=== PATIENT | female | born 1995 | race Caucasian/White ===

== ENCOUNTER → 2018-10-07 | Outpatient (REF) | payer OTHER, SELFPAY | LOC: M LAB REF 13:03 | PROVIDERS: ATTEND Physician Assistant | DX: J02.9 Acute pharyngitis, unspecified (principal) ==

== ENCOUNTER → 2018-10-09 | Outpatient (REF) | payer BC, OTHER | LOC: M LAB REF 19:33 | PROVIDERS: ATTEND Physician Assistant Medical | DX: R10.9 Unspecified abdominal pain (principal) ==

== ENCOUNTER → 2019-05-11 | Outpatient (REF) | payer BC | LOC: M LAB REF 09:56 | PROVIDERS: ATTEND Physician Assistant | DX: J03.90 Acute tonsillitis, unspecified (principal) ==

== ENCOUNTER → 2020-01-21 | Outpatient (CLI) | payer BC | LOC: M LABSMTC 13:00 | PROVIDERS: ATTEND Pediatrics | DX: Z11.59 Encounter for screening for other viral diseases (principal); Z20.828 Contact with and (suspected) exposure to other viral communicable diseases | CPT/HCPCS: C9803; U0002 ==

== ENCOUNTER → 2021-04-14 | Outpatient (REF) | LOC: M EMP 14:33 | PROVIDERS: ATTEND Family Medicine | DX: Z11.52 Encounter for screening for COVID-19 (principal); Z20.822 Contact with and (suspected) exposure to COVID-19 ==

== ENCOUNTER → 2021-04-19 | Outpatient (REF) | LOC: M EMP 08:13 | PROVIDERS: ATTEND Family Medicine | DX: Z20.822 Contact with and (suspected) exposure to COVID-19 (principal) ==

== ENCOUNTER → 2021-04-20 | Outpatient (REF) | LOC: M LABSMTC 10:59 | PROVIDERS: ATTEND Pediatrics | DX: Z20.822 Contact with and (suspected) exposure to COVID-19 (principal) ==

== ENCOUNTER → 2021-10-28 | Outpatient (REF) ==
[2021-10-28 15:05] LABS: RSV AMPLIFICATION NEGATIVE (NEGATIVE)
== END ==
LOC: M EMP 13:41
PROVIDERS: ATTEND Family Medicine
DX: Z20.822 Contact with and (suspected) exposure to COVID-19 (principal)

== ENCOUNTER → 2022-04-16 | Outpatient (REF) | LOC: M LABSMTC 10:50 | PROVIDERS: ATTEND Pediatrics | DX: Z20.822 Contact with and (suspected) exposure to COVID-19 (principal) ==

== ENCOUNTER → 2022-06-04 | Outpatient (REF) | LOC: M LABSMTC 10:50 | PROVIDERS: ATTEND Pediatrics | DX: Z11.52 Encounter for screening for COVID-19 (principal) ==

== ENCOUNTER → 2023-06-20 | Outpatient (CLI) | payer BC ==
[2023-06-20 11:21] LABS: BASO # 0.1 10^3/uL (0.0-0.2); BASO % 0.7 % (0.0-1.0); EOS # 0.2 10^3/uL (0.0-0.5); EOS % 2.4 % (0.0-3.0); HEMATOCRIT 41.2 % (36.0-47.0); HEMOGLOBIN 13.7 g/dl (12.0-15.5); LYMPH # 2.5 10^3/uL (1.5-5.0); LYMPH % 29.9 % (24.0-44.0); MEAN CORPUSCULAR HEMOGLOBIN 29.1 pg (27.0-33.0); MEAN CORPUSCULAR HGB CONC 33.3 g/dl (32.0-36.5); MEAN CORPUSCULAR VOLUME 87.5 fl (80.0-96.0); MONO # 0.7 10^3/uL (0.0-0.8); MONO % 8.3 % (2.0-8.0); NEUTROPHILS # 4.9 10^3/uL (1.5-8.5); NEUTROPHILS % 58.3 % (36.0-66.0); PLATELET COUNT, AUTOMATED 277 10^3/uL (150-450); RED BLOOD COUNT 4.71 10^6/uL (4.00-5.40); WHITE BLOOD COUNT 8.3 10^3/uL (4.0-10.0)
[2023-06-20 11:41] LABS: ALBUMIN 3.7 G/DL (3.2-5.2); ALKALINE PHOSPHATASE 52 U/L (46-116); ALT/SGPT 21 U/L (7.0-40); AST/SGOT 11 U/L (<34); BILIRUBIN,TOTAL 0.4 MG/DL (0.3-1.2); BLOOD UREA NITROGEN 10 MG/DL (9-23); CALCIUM LEVEL 8.9 MG/DL (8.5-10.1); CARBON DIOXIDE LEVEL 24 MMOL/L (20-31); CHLORIDE LEVEL 108 MMOL/L (98-107); CHOLESTEROL LEVEL 167 MG/DL (<200); CHOLESTEROL RISK RATIO 2.96 (<5); CREATININE FOR GFR 0.68 MG/DL (0.55-1.30); GLOMERULAR FILTRATION RATE > 60.0 (>60); GLUCOSE, FASTING 93 MG/DL (60-100); HDL CHOLESTEROL 56.4 MG/DL (>40); NON-HDL-C 110.6 MG/DL; POTASSIUM SERUM 4.1 MMOL/L (3.5-5.1); SODIUM LEVEL 138 MMOL/L (136-145); TOTAL PROTEIN 6.8 G/DL (5.7-8.2); TRIGLYCERIDES LEVEL 78 MG/DL (<150)
[2023-06-20 11:45] LABS: THYROID STIMULATING HORMONE 1.402 uIU/ML (0.55-4.78); TOTAL 25(OH) VITAMIN D 29.9 NG/ML (20.0-100.0)
== END ==
LOC: M RAD 10:21
PROVIDERS: ATTEND Physician Assistant
DX: Z00.00 Encounter for general adult medical examination without abnormal findings (principal); M25.551 Pain in right hip; G89.29 Other chronic pain; M54.41 Lumbago with sciatica, right side

== ENCOUNTER 2023-08-27 15:00 | Emergency (ER) | payer BC ==
[~2023-08-27] VITALS: Ht 154.9 cm; Wt 84.7 kg
[2023-08-27 17:09] LABS: BASO % 0.4 % (0.0-1.0); EOS # 0.1 10^3/uL (0.0-0.5); EOS % 0.8 % (0.0-3.0); HEMATOCRIT 38.8 % (36.0-47.0); HEMOGLOBIN 13.2 g/dl (12.0-15.5); LYMPH # 1.5 10^3/uL (1.5-5.0); LYMPH % 15.5 % (24.0-44.0); MEAN CORPUSCULAR HEMOGLOBIN 29.9 pg (27.0-33.0); MEAN CORPUSCULAR VOLUME 87.8 fl (80.0-96.0); MONO # 0.8 10^3/uL (0.0-0.8); MONO % 7.9 % (2.0-8.0); NEUTROPHILS # 7.2 10^3/uL (1.5-8.5); NEUTROPHILS % 75.2 % (36.0-66.0); PLATELET COUNT, AUTOMATED 316 10^3/uL (150-450); RED BLOOD COUNT 4.42 10^6/uL (4.00-5.40); WHITE BLOOD COUNT 9.5 10^3/uL (4.0-10.0)
[2023-08-27] MEDS ORDERED: LARI1TAB5 PO (17:27)
[2023-08-27 17:33] LABS: BLOOD UREA NITROGEN 11 MG/DL (9-23); CALCIUM LEVEL 8.5 MG/DL (8.5-10.1); CARBON DIOXIDE LEVEL 25 MMOL/L (20-31); CHLORIDE LEVEL 106 MMOL/L (98-107); CREATININE FOR GFR 0.73 MG/DL (0.55-1.30); GLOMERULAR FILTRATION RATE > 60.0 (>60); GLUCOSE, FASTING 94 MG/DL (60-100); POTASSIUM SERUM 4.1 MMOL/L (3.5-5.1); SODIUM LEVEL 137 MMOL/L (136-145)
[2023-08-27 17:35] LABS: HCG, SERUM QUALITATIVE NEGATIVE (NEGATIVE)
[2023-08-27] MEDS: NS 1,000 ML IV ONE (19:03)
[2023-08-27 19:06] LABS: CK-MB VALUE MASS < 1.0 NG/ML (<3.6)
[2023-08-27] MEDS ORDERED: ISOVUE-370 76% 100ML VIAL As Ordered ONE (19:07)
[2023-08-27 19:08] LABS: ALBUMIN 3.6 G/DL (3.2-5.2); ALKALINE PHOSPHATASE 47 U/L (46-116); ALT/SGPT 73 U/L (7.0-40); AST/SGOT 26 U/L (<34); BILIRUBIN,DIRECT 0.2 MG/DL (<0.4); BILIRUBIN,TOTAL 0.4 MG/DL (0.3-1.2); CPK CREATINE PHOSPHOKINASE 114 U/L (34-145); MB/CK RELATIVE INDEX 0.87 (< OR =4); TOTAL PROTEIN 6.9 G/DL (5.7-8.2)
[2023-08-27 19:09] LABS: FREE T4 1.03 NG/DL (0.89-1.76); THYROID STIMULATING HORMONE 0.818 uIU/ML (0.55-4.78)
[2023-08-27 19:25] LABS: ERYTHROCYTE SEDIMENTATION RATE 22 mm/hr (0-20)
[2023-08-27 19:26] LABS: INR 0.99; PARTIAL THROMBOPLASTIN TIME 26.5 SECONDS (24.8-34.2); PROTHROMBIN TIME 12.8 SECONDS (12.5-14.5)
[2023-08-27 20:13] VITALS: BP 102/55; TEMP 98.2; O2SAT 97
== END 2023-08-27 20:16 | disposition home or self-care (01) ==
LOC: M ED 15:00
DX: R00.2 Palpitations (principal); F17.290 Nicotine dependence, other tobacco product, uncomplicated; Z88.1 Allergy status to other antibiotic agents; Z88.8 Allergy status to other drugs, medicaments and biological substances; Z79.899 Other long term (current) drug therapy
CPT/HCPCS: 71275; 80048; 80076; 82550; 82553; 84439; 84443; 84484; 84703; 85025; 85610; 85652; 85730; 86140; 93005; 96360; 99284; Q9967

== ENCOUNTER → 2023-12-19 | Outpatient (REF) ==
[~2023-12-19] MED LIST: LARI1TAB5 PO
== END ==
LOC: M EMP 10:50
PROVIDERS: ATTEND Family Medicine
DX: Z11.52 Encounter for screening for COVID-19 (principal)

== ENCOUNTER → 2024-09-24 | Outpatient (CLI) | payer BC ==
[2024-09-24 09:59] LABS: HEMATOCRIT 41.2 % (36.0-47.0); HEMOGLOBIN 13.9 g/dl (12.0-15.5); MEAN CORPUSCULAR HEMOGLOBIN 29.5 pg (27.0-33.0); MEAN CORPUSCULAR HGB CONC 33.7 g/dl (32.0-36.5); MEAN CORPUSCULAR VOLUME 87.5 fl (80.0-96.0); PLATELET COUNT, AUTOMATED 289 10^3/uL (150-450); RED BLOOD COUNT 4.71 10^6/uL (4.00-5.40); WHITE BLOOD COUNT 7.4 10^3/uL (4.0-10.0)
[2024-09-24 10:22] LABS: ALBUMIN 3.8 G/DL (3.2-5.2); ALKALINE PHOSPHATASE 61 U/L (35-104); ALT/SGPT 26 U/L (7.0-40); AST/SGOT 10 U/L (<34); BILIRUBIN,TOTAL 0.7 MG/DL (0.3-1.2); BLOOD UREA NITROGEN 12 MG/DL (9-23); CARBON DIOXIDE LEVEL 26 MMOL/L (20-31); CHLORIDE LEVEL 107 MMOL/L (98-107); CHOLESTEROL LEVEL 140 MG/DL (<200); CHOLESTEROL RISK RATIO 2.42 (<5); CREATININE FOR GFR 0.67 MG/DL (0.55-1.30); GLOMERULAR FILTRATION RATE > 90.0 (>60); GLUCOSE, FASTING 90 MG/DL (60-100); HDL CHOLESTEROL 57.8 MG/DL (>40); NON-HDL-C 82.2 MG/DL; POTASSIUM SERUM 4.6 MMOL/L (3.5-5.1); SODIUM LEVEL 139 MMOL/L (136-145); TOTAL PROTEIN 6.9 G/DL (5.7-8.2); TRIGLYCERIDES LEVEL 61 MG/DL (<150)
[2024-09-24 10:24] LABS: TOTAL 25(OH) VITAMIN D 20.4 NG/ML (20.0-100.0)
[2024-09-24 10:37] LABS: THYROID STIMULATING HORMONE 1.216 uIU/ML (0.55-4.78)
== END ==
LOC: M LAB 08:50
DX: Z00.00 Encounter for general adult medical examination without abnormal findings (principal)

== ENCOUNTER 2024-10-10 07:07 | Day surgery (SDC) | payer BC ==
[~2024-10-10] VITALS: Ht 154.9 cm; Wt 87.2 kg
[2024-10-10] MEDS ORDERED: propofoL 200 MG/20 ML VIAL As Ordered ONE (07:49)
[2024-10-10] MEDS ORDERED: ONDANSETRON 4MG 2ML VIAL As Ordered ONE (07:49)
[2024-10-10] MEDS ORDERED: LIDOCAINE 2% 100MG/5ML SDV (FOR ANES.) As Ordered ONE (07:49)
[2024-10-10] MEDS ORDERED: KETOROLAC 30 MG/ML 1ML VIAL As Ordered ONE (07:49)
[2024-10-10] MEDS ORDERED: fentaNYL 100 MCG/2 ML INJECTION As Ordered ONE (07:51)
[2024-10-10] MEDS ORDERED: MIDAZOLAM INJ 2MG/2ML VIAL As Ordered ONE (07:51)
[2024-10-10] MEDS ORDERED: ACETAMINOPHEN 1000MG/100ML IV BAG As Ordered ONE (08:41)
[2024-10-10] MEDS ORDERED: ONDANSETRON 4MG 2ML VIAL IV PRN (09:20)
[2024-10-10] MEDS ORDERED: oxyCODONE 5MG TAB PO PRN (09:20)
[2024-10-10] MEDS ORDERED: LR 1,000 ML IV SCH (09:20)
[2024-10-10] MEDS ORDERED: METOCLOPRAMIDE INJ 10MG/2ML VIAL IV PRN (09:20)
[2024-10-10] MEDS ORDERED: fentaNYL 100 MCG/2 ML INJECTION IV PRN (09:20)
[2024-10-10] MEDS ORDERED: MEPERIDINE 25 MG/ML 1ML VIAL IV PRN (09:20)
[2024-10-10 10:25] VITALS: BP 126/71; TEMP 97.6; O2SAT 97
== END 2024-10-10 10:33 | disposition home or self-care (01) ==
LOC: M SDC 07:07
PROVIDERS: ATTEND Orthopaedic Surgery Hand Surgery
DX: G56.01 Carpal tunnel syndrome, right upper limb (principal); Z68.36 Body mass index [BMI] 36.0-36.9, adult; Z88.1 Allergy status to other antibiotic agents; Z88.2 Allergy status to sulfonamides; Z79.3 Long term (current) use of hormonal contraceptives; F17.290 Nicotine dependence, other tobacco product, uncomplicated
CPT/HCPCS: 29848; 81025; J0131; J0665; J1100; J1885; J2250; J2405; J3010

== ENCOUNTER → 2025-03-13 | Outpatient (REF) | payer BC | LOC: M LAB REF 11:47 | PROVIDERS: ATTEND Physician Assistant | DX: J02.9 Acute pharyngitis, unspecified (principal) ==